=== PATIENT | female | born 1985 | race Caucasian/White ===

== ENCOUNTER 2017-12-26 07:37 | Outpatient (CLI) | payer OTHER ==
--- NOTE | 2017-12-29 13:59 | Ultrasound Report ---
COMPLETE OB ULTRASOUND ANATOMIC SCREEN: 12/26/2017 COMPARISON: None. INDICATION: Anatomy screen. TECHNIQUE: Sonographic evaluation of single intrauterine transabdominal exam. Real-time scanning was performed with claims representative static images obtained. LAST MENSTRUAL PERIOD: 08/04/2017 Clinical Age: 20 weeks 4 days US Age: 20 weeks 3 days EFW Hadlock: 345 g EFW% Hadlock: 31 % Heart Rate: 154 bpm EDC: 05/11/2018 US EDC: 05/12/2018 BPD Hadlock: 20 weeks 6 days; Mean mm 48.9 HC Hadlock: 20 weeks 1 day; Mean mm 176.1 AC Hadlock: 20 weeks 1 day; Mean mm 148.3 FL Hadlock: 20 weeks 4 days; Mean mm 33.6 Presentation: variable Placental Location: anterior Cervical Length: 4.1 cm Amniotic Fluid: 5.1 cm FINDINGS: The following structures are imaged and have a normal appearance : Choroid plexus, lateral ventricles, midline falx, cavum septum pellucidum, cisterna magna, cerebellum, nuchal fold, nasal bone, coronal face, nose, lips, open hands, cardiac situs, 4 chamber heart, left and right ventricular outflow tract, stomach and situs, heart, stomach, bladder, diaphragm, kidneys, gallbladder, cord insertion, spine, upper and lower extremities, leg and foot relationships. The cervix is long and closed, measuring 4.1 cm. Uterus, cervix, and adnexa appear grossly unremarkable. IMPRESSION: 1. SINGLE VIABLE INTRAUTERINE WITH SIZE CONCORDANT WITH DATES. 2. NO ANOMALIES. MTDD
== END 2017-12-26 07:38 | disposition home or self-care (01) ==
LOC: DI 07:37
PROVIDERS: ATTEND Registered Nurse
DX: Z34.82 Encounter for supervision of other normal pregnancy, second trimester (principal)
CPT/HCPCS: 76811

== ENCOUNTER 2018-02-19 08:55 | Outpatient (CLI) | payer OTHER ==
[2018-02-19 13:03] LABS: HGB - HEMOGLOBIN 11.2 g/dL (12.0-16.0); MEAN CORPUSCULAR HEMOGLOBIN 29.8 pg (27.0-31.0); MEAN CORPUSCULAR HGB CONC 33.6 g/dL (32.0-36.0); MEAN CORPUSCULAR VOLUME 88.5 fL (81.0-99.0); MEAN PLATELET VOLUME 9.1 fL (7.9-10.8); RED BLOOD COUNT 3.78 10^6/uL (4.20-5.40); RED CELL DISTRIBUTION WIDTH 12.7 % (12.0-15.0); WHITE BLOOD COUNT 12.7 x10^3/uL (4.8-10.8)
== END 2018-02-19 08:56 | disposition home or self-care (01) ==
LOC: LAB.N 08:55
PROVIDERS: ATTEND Nurse Practitioner Obstetrics & Gynecology
DX: Z36.89 Encounter for other specified antenatal screening (principal)
CPT/HCPCS: 36415; 82950; 86850

== ENCOUNTER 2018-04-14 14:16 | Outpatient (CLI) | payer OTHER | END 2018-04-14 14:17 | disposition home or self-care (01) | LOC: LAB.R 14:16 | PROVIDERS: ATTEND Registered Nurse | DX: Z34.83 Encounter for supervision of other normal pregnancy, third trimester (principal) | CPT/HCPCS: 87081; 87797 ==

== ENCOUNTER 2018-05-07 07:25 | Outpatient (CLI) | payer OTHER ==
[2018-05-07 07:46] VITALS: BP 123/88
== END 2018-05-07 08:35 | disposition home or self-care (01) ==
LOC: WFO 07:25 → FBP 07:27 → WFO 08:35
PROVIDERS: ATTEND Nurse Practitioner Obstetrics & Gynecology
DX: O36.8130 Decreased fetal movements, third trimester, not applicable or unspecified (principal); Z3A.39 39 weeks gestation of pregnancy
CPT/HCPCS: 99213

== ENCOUNTER 2018-05-14 08:02 | Inpatient (IN) | payer OTHER ==
[2018-05-14 09:13] LABS: RUPTURE OF MEMBRANES PLUS NEGATIVE (NEGATIVE)
[2018-05-14] MEDS ORDERED: ONDANSETRON 4 MG/2 ML VIAL IVP PRN (10:05)
[2018-05-14] MEDS ORDERED: SODIUM CHLORIDE FLUSH 0.9% 10 ML SYRINGE IVP PRN (10:05)
[2018-05-14] MEDS ORDERED: fentaNYL 100 MCG/2 ML VIAL IVP PRN (10:05)
--- NOTE | 2018-05-14 10:11 | HISTORY & PHYSICAL EXAMINATION ---
Admit History - Instructions Enterprise/Slash: -Left hand click circles element as positive or present. -Right hand click slashes element as negative or not present. - Visit Reason Visit Reason: Other (desires IOL @ 40w3d gestation) - : 1 Parity: 0 Premature: 0 Ectopic: 0 : 0 Care: positive: [facility] (transfer of care from [facility] @ 17 weeks' gestation x13 total visits; 42# weight gain) Risk/History: positive: None Complications This : positive: None Smoking Status: Former smoker - Mother's Labs Mother's Blood Type: positive: B Mother's RH: positive: Negative GBS: positive: Group B Step Negative Rubella Status: positive: Immune Meds/Allgy - Allergies Allergies/Adverse Reactions: Allergies Allergy/AdvReac Type Severity Reaction Status Date / Time No Known Drug Allergies Allergy Verified 05/14/18 09:13 Review of Systems - Constitutional Constitutional: denies: Fatigue, Fever - Cardiovascular Cariovascular: denies: Palpitations, Chest pain, Edema - Respiratory Respiratory: denies: Cough, Wheezing, SOB at rest, SOB with exertion - Gastrointestinal Gastrointestinal: denies: Abdominal pain, Abdominal distention, Constipation, Diarrhea, Change in bowel habits, Nausea, Vomiting - Genitourinary Genitourinary: reports: Frequency, Urgency. denies: Dysuria - Musculoskeletal Musculoskeletal: denies: Muscle pain, Back pain, Muscle aches - Integumentary Integumentary: denies: Rash, Pruritis, Lesions - Neurological Neurological: denies: General weakness, Headache, Dizziness, Numbness - Psychiatric Psychiatric: denies: Depression, Anxiety - All Other Systems All Other Systems: reports: Reviewed and negative, Other (+FM; thought she may have been leaking fluid, small trickle earlier today, no continuous leakage, some bloody show) Physical - Abdominal Exam Vital Signs: Temp Pulse Resp BP Pulse Ox 36.9 C 91 16 122/88 H 97 05/14/18 08:35 05/14/18 08:35 05/14/18 08:35 05/14/18 08:35 05/14/18 08:35 Contraction Frequency (min/apart): 5-7 Contraction Intensity: positive: Mild to moderate Uterine Resting Tone: positive: Soft - Monitoring Heart Rate Baseline: 140 Strip Review: positive: Category I - Presentation Presentation: positive: Vertex - Vaginal Exam Membranes: positive: Membranes intact Dilation (in cm): 3 Effacement (%): 90 Station: positive: 0 Cervical Position: positive: Posterior (medium consistency) - Speculum Exam Speculum Exam Performed: positive: No Findings: positive: Other (ROM + negative). negative: Gross leak - Other Notes Labor Progress Note/Additional Text: Marleni Dillard is a 32 y/o @ 40w3d by first trimester US whose has been entirely uncomplicated. She is B negative & received Rhogam @ 28 weeks' gestation per protocol. She screened negative for GBS & her labwork was all WNL. She is well-supported by her & her MIL & her mother, who are all present with her today. She is hoping for an unmedicated delivery & plans to breastfeed. She thought she may have experienced ROM this am, but her evaluation was negative. She desires IOL & requests misoprostol administration , which we reviewed @ length. Full PARQ w/ review of risks/benefits/ alternatives/SE profile/protocol for administration, informed consent obtained. PMH: Unremarkable PSH: None GYNHx: hx NILM pap w/o hx of abnormal, last 10/2016, denies hx of STIs OBHx: Primiparous SocialHx: to [place], denies DV; works f/t as riding teacher in [place]; denies ETOH/tobacco/drugs; denies hx of anxiety/depression, financially secure FamHx: Non-contributory PE: GEN: AAOx3, NAD [place] gravid female HEENT: Grossly normocephalic, atraumatic, w/o corrective lenses RESP: Lungs b/l cta t/o CARDIAC: RRR nls1s2, no murmur GI: Abd gravid, NT, fetus longitudinal; presentation cephalic; EFW 8# : No lesions, SVE: 3/90/0, posterior, medium consistency, IBOW OB: EFM Bl 140bpm, +accels, no decels, mod gladys; toco: UCs q6-7 min x60 seconds , palp mod MS: FROM t/o, no deformity, no erythema/edema SKIN: warm, well-perfused, c/d/i, no lesion NEURO: no focal deficit PSYCH: normal mood & affect, pleasantly conversant Plan for Labor - Plan For Labor I expect patient to be DC'd or transferred within 96 hours.: Yes Plan for Labor: 1. Admit 2. IV insert & admission labs 3. Misoprostol 50mcg BC q 4 hours 4. Reassess cervical status w/ clinical indication 5. Reviewed ROM w/ pt, who declines AROM @ this point, may elect in the future 6. Reviewed anticipatory guidance for labor induction process & possible outcomes 7. Reviewed pain management techniques, analgesia/anesthesia PRN per pt request 8. Reviewed plan of care w/ pt, partner, MIL, pt's mother & RN @ bedside; all in agreement, without questions/concerns.
[2018-05-14 10:26] LABS: BASOPHILS % (AUTO) 0.3 %; EOSINOPHILS % (AUTO) 0.4 %; HGB - HEMOGLOBIN 11.6 g/dL (12.0-16.0); LYMPHOCYTES # (AUTO) 1.7 10^3/uL (1.5-3.5); MEAN CORPUSCULAR HEMOGLOBIN 28.9 pg (27.0-31.0); MEAN CORPUSCULAR HGB CONC 33.9 g/dL (32.0-36.0); MEAN CORPUSCULAR VOLUME 85.1 fL (81.0-99.0); MEAN PLATELET VOLUME 11.1 fL (7.9-10.8); MONOCYTES # (AUTO) 0.7 10^3/uL (0.0-1.0); MONOCYTES % (AUTO) 5.8 %; NEUTROPHILS # (AUTO) 10.4 10^3/uL (1.5-6.6); NEUTROPHILS % (AUTO) 80.5 %; PLT - PLATELET COUNT 170 10^3/uL (130-450); RED BLOOD COUNT 4.03 10^6/uL (4.20-5.40); RED CELL DISTRIBUTION WIDTH 14.4 % (12.0-15.0)
[2018-05-14] MEDS: miSOPROStol 100 MCG TABLET BC SCH ×2 (10:53→23:55)
[2018-05-14] MEDS ORDERED: SODIUM CHLORIDE FLUSH 0.9% 10 ML SYRINGE IVP SCH (17:00)
[2018-05-14] MEDS ORDERED: OXYTOCIN/SODIUM CHLORIDE 500 ML IV ONE (19:09)
[2018-05-15] MEDS: LACTATED RINGERS 1,000 ML IV SCH ×5 (02:25→20:22)
[2018-05-15] MEDS ORDERED: OXYTOCIN/SODIUM CHLORIDE 500 ML IV SCH (05:00)
[2018-05-15] MEDS ORDERED: fent/BUPIV 2 MCG/0.125% 250 ML EP ONE (06:36)
--- NOTE | 2018-05-15 07:56 | PROVIDER PROGRESS NOTE ---
Labor Progress Note - Uterine Monitoring Uterine Monitoring Mode: positive: External toco Contraction Frequency (min/apart): 4-5 Contraction Intensity: positive: Mild to moderate Uterine Resting Tone: positive: Soft - Monitoring Monitor Mode: positive: External ultrasound Heart Rate Baseline: 150 Heart Rate Variability: positive: Moderate (6-25 bmp) Accelerations: positive: Present, 15x15 Decelerations: positive: None Strip Review: positive: Category I - Vaginal Exam Dilation (in cm): 5 per RN Effacement (%): 90 Station: -1 Cervical Position: Posterior - Labor Progress Note Labor Progress Note/Additional Text: S: Marleni is doing well. She has been using the jacuzzi & coping with her contraction activity, which has become more sporadic over time s/p initial misoprostol administration w/ initial increased contraction activity. Her family is present @ the bedside & is supportive. O: AAOx3, NAD WA female, VSS EFM: BL 150bpm, +accels, no decels, mod gladys TOCO: UCs q4-5 min x60 sec, palp mod SVE per RN: /-1 (previously reported by [facility] RN to be 8cm), IBOW A: 32 y/o @ 40w3d, IOL per pt request, s/p single dose of misoprostol w/ slight cervical change, contractions now less frequent, inconsistent GBS neg, IBOW FHTs cat I Adequate pain control w/o analgesia/anesthesia P: 1. repeat misoprostol x1 more dose, 50mcg buccally 2. Reassess cervical status w/ clinical indication 3. Reviewed pain management modalities, analgesia/anesthesia PRN 4. AROM/Pit if no cervical change @ next SVE
--- NOTE | 2018-05-15 08:00 | PROVIDER PROGRESS NOTE ---
Labor Progress Note - Uterine Monitoring Uterine Monitoring Mode: positive: External toco Contraction Frequency (min/apart): 1-4 Contraction Intensity: positive: Moderate Uterine Resting Tone: positive: Soft - Monitoring Monitor Mode: positive: External ultrasound Heart Rate Baseline: 150 Heart Rate Variability: positive: Moderate (6-25 bmp) Accelerations: positive: Present, 15x15 Decelerations: positive: None Strip Review: positive: Category I - Vaginal Exam Dilation (in cm): 7 Effacement (%): 90 Station: 0 (per RN) - Labor Progress Note Labor Progress Note/Additional Text: S: Marleni is feeling tired, utilizing self-administered nitrous oxide w/ some relief. Family @ bedside, supportive O: AAOx3, NAD [place] female VSS EFM: BL 155bpm, +accels, no decels, mod gladys TOCO: UCs q1-4 min, palpably moderate A: 32 y/o @ 40w4d, elective IOL SROM for minimal fluid @ 0240, GBS negative, afebrile FHTs cat I Coping well w/ use of nitrous oxide Slow cervical change s/p two dose of misoprostol P: 1. Begin Pitocin infusion & titrate per protocol to adequate contraction pattern by tocometry 2. Analgesia/anesthesia PRN per pt request 3. Reassess cervical status x4 hours, earlier PRN problem
--- NOTE | 2018-05-15 08:15 | PROVIDER PROGRESS NOTE ---
Labor Progress Note - Uterine Monitoring Uterine Monitoring Mode: positive: External toco, IUPC Contraction Frequency (min/apart): q2 min Contraction Intensity: positive: Mild (BL 25mmHg, peak 75mmHg; MVU presently 130 ) - Monitoring Monitor Mode: positive: External ultrasound Heart Rate Baseline: 170 Heart Rate Variability: positive: Moderate (6-25 bmp) Accelerations: positive: Absent Decelerations: positive: Late, Recurrent (>50% x20 min) Strip Review: positive: Category II - Vaginal Exam Dilation (in cm): 8-9 Effacement (%): 100 Station: 0 (LOT positioning) Cervical Position: Anterior - Labor Progress Note Labor Progress Note/Additional Text: S: Marleni is comfortable w/ her epidural in place. She is exhausted & looking forward to napping. Her family is present @ the bedside & is supportive O: AAOx3, NAD [place] female VSS EFM BL 170bpm, no accels, recurrent late decelerations to sheba in 130s w/ spontaneous return to baseline <60 seconds, moderate variability IUPC placed to ensure adequacy of contraction activity (Pitocin infusion only titrated to 2mU/min, then d/c'ed for late decelerations); BL 25mmHg, peak 60mmHg , MVU presently 130 SVE: 9/100/0, desceds to +1 w/ contraction, positioning LOT, AROM forebag for port wine fluid A: 32 y/o @ 40w4d, elective IOL for prodromal contractions/discomfort GBS negative, SROM @ 0240, for a total ruptured duration of 4.5 hours, afebrile & GBS negative Inadequate contraction pattern per IUPC malposition Adequate pain control w/ epidural anesthesia Slow but progressive cervical change despite inadequate labor FHTs cat II w/o evidence of hypoxemia P: 1. Resume Pitocin infusion & titrate per protocol to achieve adequate contraction pattern by IUPC 2. Reviewed maternal positioning to facilitate rotation & descent 3. Place hernandez catheter to optimize pelvic proportions 4. Reviewed clinical scenario & FHTs w/ pt & family @ length, reviewed implications & possibility of need for LTCS if FHTs do not improve, as delivery is not imminent 5. Dr. Rosalina MD, back-up [employer] WORK[employer] to bedside to review strip & clinical scenario with patient & family; ongoing careful monitoring of FHTs
[2018-05-15] MEDS ORDERED: ceFAZolin 2 GM in SODIUM CHLORIDE 0.9% MINIBAG 100 ML IV STA (08:40)
--- NOTE | 2018-05-15 08:42 | PROVIDER PROGRESS NOTE ---
Labor Progress Note - Uterine Monitoring Uterine Monitoring Mode: positive: IUPC Contraction Frequency (min/apart): 2-3 Contraction Intensity: positive: Moderate Other Uterine Monitoring: baseline 20mmHg, peak 70mmHg, MVU presently 135 - Monitoring Monitor Mode: positive: External ultrasound Heart Rate Baseline: 175 Heart Rate Variability: positive: Moderate (6-25 bmp) Accelerations: positive: Absent Decelerations: positive: Late, Recurrent (>50% x20 min) (to sheba in 130s w/ spontaneous return to baseline, persistent, repetitive w/o response to intrauterine resuscitative measures) Strip Review: positive: Category II - Vaginal Exam Dilation (in cm): 9 Effacement (%): 100 Station: 0 - Labor Progress Note Labor Progress Note/Additional Text: Reviewed w/ pt & family no improvement in FHTs & need for intervention as a result. Remote from delivery, FHTs persistently concerning. Dr. Romano to bedside to consent pt for primary LTCS for NRFHTs. Reviewed clinical scenario @ length with patient & family. Peds notified to be present @ delivery, OR notified, requested anesthesia come to room to bolus epidural for surgery.
[2018-05-15] MEDS ORDERED: CITRIC ACID/SODIUM CITRATE 15 ML UDC PO ONE ×2 (08:43→08:51)
[2018-05-15] MEDS ORDERED: LACTATED RINGERS 1,000 ML IV ONE ×3 (08:51→20:20)
[2018-05-15] MEDS ORDERED: ceFAZolin 3 GM in SODIUM CHLORIDE 0.9% 100ML 100 ML IV ONE (08:51)
[2018-05-15] MEDS ORDERED: SODIUM CHLORIDE FLUSH 0.9% 10 ML SYRINGE IVP PRN (08:52)
[2018-05-15] MEDS ORDERED: SODIUM CHLORIDE FLUSH 0.9% 10 ML SYRINGE IVP SCH (09:00)
[2018-05-15] MEDS ORDERED: ceFAZolin 2 GM/50 ML 2 GM/50 ML BAG IV ONE (09:00)
[2018-05-15] MEDS ORDERED: OXYTOCIN 10 UNIT/ML VIAL IV ONE (09:41)
[2018-05-15] MEDS ORDERED: fentaNYL 100 MCG/2 ML VIAL IVP ONE (09:41)
[2018-05-15] MEDS ORDERED: ceFAZolin 2 GM/50 ML BAG IV ONE (09:41)
[2018-05-15] MEDS ORDERED: ONDANSETRON 4 MG/2 ML VIAL IVP ONE (09:41)
[2018-05-15] MEDS ORDERED: LIDOCAINE-MPF 2% 5 ML VIAL IM ONE (09:41)
[2018-05-15] MEDS ORDERED: diphenhydrAMINE 25 MG CAPSULE PO PRN (09:43)
[2018-05-15] MEDS ORDERED: WITCH HAZEL/GLYCERIN 1 EACH MED..PAD TOP PRN (09:43)
[2018-05-15] MEDS ORDERED: ZOLPIDEM 5 MG TABLET PO PRN (09:43)
[2018-05-15] MEDS ORDERED: HYDROCORTISONE/PRAMOXINE 10 GM PR PRN (09:43)
--- NOTE | 2018-05-15 09:55 | OPERATIVE REPORT ---
Operative Report - General Admit Date: 05/15/18 Planned Procedure: Primary lower segment transverse section (urgent) Pre-Op Diagnosis: Repetitive late decelerations, evidence of compromise, uterine pain w Procedure Performed: Primary lower segment transverse section Post Op Diagnosis: Successful delivery of a living female ; await patho - Procedure Note Primary Surgeon: Christophe Romano MD, FACOG, FICS Secondary Surgeon: Niranjan Strong; ANP; CNM Anesthesia Provider: Trip Lima MD Anesthesia Technique: Epidural Pathology: Placenta sent to pathology for evidence of abruption and possible mild chorion amnionitis IV Fluids (mL): 800 Estimated Blood Loss (mL): 400 Urine Output (mL): 120 Drain/Tube Type: Other (Hong catheter with clear urine) Complications: none - Other Other Information/Narrative: time equals Living female infant We 7 pounds 10.4 oz Apgars 8/9 Cord gases sent Arterial pH 7.22, base excess -4.4 Venous pH 7.26 base excess -4.6 Dressing includes wound VAC
[2018-05-15] MEDS ORDERED: KETOROLAC 30 MG/ML VIAL IVP ONE (10:06)
[2018-05-15] MEDS ORDERED: HYDROmorphone 1 MG/ML CARPUJECT IVP ONE (10:11)
[2018-05-15] MEDS ORDERED: ACETAMINOPHEN 1,000 MG/100 ML 100 ML IV ONE (10:13)
[2018-05-15] MEDS: miSOPROStol 100 MCG TABLET BC SCH ×2 (13:19→17:29)
[2018-05-15] MEDS: ACETAMINOPHEN 325 MG TABLET PO PRN ×2 (17:24→23:33)
[2018-05-15] MEDS: IBUPROFEN 600 MG TABLET PO SCH ×3 (17:25→23:33)
[2018-05-15] MEDS: oxyCODONE 5 MG TABLET PO PRN ×2 (17:25→22:45)
--- NOTE | 2018-05-15 20:22 | OPERATIVE REPORT ---
DATE OF SERVICE: 05/15/2018 Physician: Christophe Romano MD PREOPERATIVE DIAGNOSIS: Repetitive late decelerations, evidence of compromise; suspected abruption with uterine pain and blood-stained amniotic fluid. POSTOPERATIVE DIAGNOSES 1. Successful delivery of a living female ; await pathology. 2. Repetitive late decelerations, evidence of compromise; suspected abruption with uterine pain and blood-stained amniotic fluid. PROCEDURE: Primary lower segment transverse section with a Pfannenstiel skin incision. SURGEON: Christophe Romano MD, FACOG, FICS SLIP COVER ESTIMATOR: Edison Strong, advanced nurse practitioner, certified nurse media/instructional designer ANESTHESIA: Trip Lima MD ANESTHESIA TYPE: Epidural. PATHOLOGY: Placenta sent to pathology for evidence of abruption and possible mild chorioamnionitis. IV FLUIDS: 800 ESTIMATED BLOOD LOSS: 400 URINE OUTPUT: 120, clear. DRAINS: Hong with clear urine present. COMPLICATIONS: None. FINDINGS At 0906 hours, a living female was born weighing 7 pounds 10.4 ounces and scoring Apgars of 8/9. Arterial pH 7.22 with a base excess of -4.4. Venous pH 7.26 with a base excess of -4.6. had no obvious trauma or congenital anomalies noted. did well to stimulation and resuscitation. Placenta was extracted intact. The placenta itself was somewhat adherent and mostly anterior. Clots were found, Await pathology report. Amniotic fluid had a somewhat pungent smell. Cord was a 3-vessel, and there was no significant cord entanglement. Tubes and ovaries appeared completely normal. There was no myometrial pathology or septum noted. INDICATIONS: At 8:15 a.m., Edison Strong CNM, informed me of a series of late decelerations that occurred on the patient's tracing. baseline was elevated, and there was a series of 4 recurrent late decelerations with moderate variability maintained. The late decelerations spontaneously improved , and we continued to watch. The patient noted uterine pain and previously had blood-stained amniotic fluid on rupture. I discussed the situation with the patient and family and informed her that we would maintain close watch, since there were concerns about well-being and reserve. After a brief reprieve , the late decelerations recurred, and we prepared immediately for section. OR was informed. The patient was given Bicitra and IV antibiotics of 3 g of Ancef ordered. Computer Networking Instructor Darío Miller redosed her epidural with lidocaine, and preparations were made for transport to the OR. TECHNIQUE The patient was placed on the OR table in the supine position with customary left-sided abdominal roll. Heart tones were noted in the 120s. The patient was prepped and draped in the customary sterile fashion. Timeout procedure was done per protocol. Anesthesia was confirmed through level T10. Incision was begun at 0903 hours. Abdominal wall was uneventfully opened with a Pfannenstiel incision. Position of the fetus was assessed, including placenta. A lower segment transverse hysterotomy incision was executed just below the placenta. The amniotic cavity was entered, and there was somewhat cloudy fluid but no derik bleeding. Incision was extended with gentle finger traction. Locate Technician secured the vertex with his right hand and guided the head through the hysterotomy and laparotomy wound. Shoulders were delivered without difficulty. Cord was doubly clamped, transected. Cord gas sample was sent. Infant was handed to the waiting pediatrics team. The uterus was exteriorized. Placenta was somewhat adherent and removed with gentle massage. It was sent to pathology. Hysterotomy was closed in 2 layers, first with an interlocking stitch of 0 Vicryl, after which, an imbricating stitch of #1 Vicryl was done in a cardinal fashion. We chose not to close the bladder flap. The abdominal cavity was lavaged with warm normal saline and the uterus placed back within the abdomen. We inspected all operative sites to ensure hemostasis. Peritoneal closure was done with a running stitch of 2-0 chromic. Rectus muscle was tacked together with interrupted stitches of #1 Vicryl. Fascia was closed with a running stitch of #0 Vicryl. Subcutaneous space was closed with interrupted stitches of 2-0 chromic. Skin was closed with a running subcuticular stitch of 4-0 Monocryl. The wound was dressed with a wound VAC. At the termination of the case, all sponge, needle, and instrument counts were confirmed as correct. The patient was uneventfully aroused and taken to the recovery room in good condition. TD: 05/15/2018 10:55 [facility]
[2018-05-15] MEDS: DOCUSATE SODIUM 100 MG CAPSULE PO SCH (22:43)
[2018-05-16] MEDS: oxyCODONE 5 MG TABLET PO PRN ×6 (02:16→21:34)
[2018-05-16] MEDS: ACETAMINOPHEN 325 MG TABLET PO PRN ×3 (05:29→18:08)
[2018-05-16] MEDS: IBUPROFEN 600 MG TABLET PO SCH ×3 (05:29→18:08)
[2018-05-16 06:28] LABS: BASOPHILS % (AUTO) 0.3 %; EOSINOPHILS % (AUTO) 0.2 %; HGB - HEMOGLOBIN 9.6 g/dL (12.0-16.0); LYMPHOCYTES # (AUTO) 1.2 10^3/uL (1.5-3.5); LYMPHOCYTES % (AUTO) 7.9 %; MEAN CORPUSCULAR HEMOGLOBIN 29.1 pg (27.0-31.0); MEAN CORPUSCULAR HGB CONC 33.3 g/dL (32.0-36.0); MEAN CORPUSCULAR VOLUME 87.4 fL (81.0-99.0); MEAN PLATELET VOLUME 10.3 fL (7.9-10.8); MONOCYTES # (AUTO) 0.8 10^3/uL (0.0-1.0); MONOCYTES % (AUTO) 5.3 %; NEUTROPHILS # (AUTO) 13.2 10^3/uL (1.5-6.6); NEUTROPHILS % (AUTO) 86.3 %; PLT - PLATELET COUNT 137 10^3/uL (130-450); RED BLOOD COUNT 3.31 10^6/uL (4.20-5.40); RED CELL DISTRIBUTION WIDTH 14.7 % (12.0-15.0); WHITE BLOOD COUNT 15.3 x10^3/uL (4.8-10.8)
[2018-05-16] MEDS: LACTULOSE 10 GM /15 ML UDC PO SCH (09:03)
[2018-05-16] MEDS: DOCUSATE SODIUM 100 MG CAPSULE PO SCH ×2 (09:03→21:35)
--- NOTE | 2018-05-16 10:31 | PROVIDER PROGRESS NOTE ---
Subjective - Prog Note Date Prog Note Date: 05/16/18 Prog Note Time: 10:30 - Subjective Pt reports feeling: Improved Subjective: Marleni is doing well. She is ambulating & voiding w/o difficulty. She is passing flatus & tolerating po intake. She reports minimal lochia rubra. She reports that her pain is well-controlled w/ her presently ordered oxycodone. She is not planning to return to work. Evan will have 12 days off to assist her at home & [place] She reports additional excellent social support. She articulates full understanding of the events leading up to her c/s delivery & has no concerns or regrets. She is well w/ excellent latch & minimal discomfort. Objective - Vital Signs/Intake & Output Vital Signs: Vital Signs x48h Temp Pulse Resp BP Pulse Ox 05/16/18 08:35 37.1 C 103 H 18 116/76 98 05/16/18 05:31 36.8 C 88 16 122/70 99 Intake & Output: Intake & Output 05/13/18 05/14/18 05/15/18 05/16/18 23:59 23:59 23:59 23:59 Intake Total 500 1918.333 400 Output Total 271 424 5482 Balance 100 1143.333 -1750 - Objective General Appearance: positive: No acute distress, Alert Eyes Bilateral: positive: Normal inspection, PERRL, EOMI Respiratory: positive: Chest non-tender, No respiratory distress, Breath sounds nml Cardiovascular: positive: Regular rate & rhythm, No murmur Abdomen: positive: No distention, Tenderness, Other (FF U-1; Prevena wound vac in place, c/d/i w/o circumferential exudate or erythema) Skin: positive: Color nml, No rash, Warm, Dry Extremities: positive: Non-tender, Full ROM, Nml appearance, No pedal edema. negative: Calf tenderness, Krystian's sign/cords Neurologic/Psychiatric: positive: Oriented x3, CN's nml (2-12), Motor nml, Sensation nml, Mood/affect nml Comments/Other: Breasts b/l s, nt; nipples b/l intact & everted; colostrum readily expressible - Lab Results Fish Bones: 05/16/18 06:18 Other Labs: Lab Results x24hrs 05/16/18 05/16/18 Range/Units 06:18 06:18 WBC 15.3 H (4.8-10.8) x10^3/uL RBC 3.31 L (4.20-5.40) 10^6/uL Hgb 9.6 L (12.0-16.0) g/dL Hct 28.9 L (37.0-47.0) % MCV 87.4 (81.0-99.0) fL MCH 29.1 (27.0-31.0) pg MCHC 33.3 (32.0-36.0) g/dL RDW 14.7 (12.0-15.0) % Plt Count 137 (130-450) 10^3/uL MPV 10.3 (7.9-10.8) fL Neut # (Auto) 13.2 H (1.5-6.6) 10^3/uL Lymph # (Auto) 1.2 L (1.5-3.5) 10^3/uL [place] # (Auto) 0.8 (0.0-1.0) 10^3/uL Eos # (Auto) 0.0 (0.0-0.7) 10^3/uL Baso # (Auto) 0.0 (0.0-0.1) 10^3/uL Absolute Nucleated RBC 0.01 x10^3/uL Nucleated RBC % 0.0 /100WBC Blood Type B NEGATIVE Weak D (Du) WEAK-D NEGATIVE Maternal Bleed NEGATIVE (NEGATIVE) ABX Reporting Has patient been on IV antibiotics over the past 48 hours?: Yes Assessment/Plan - Problem List (1) delivery delivered Impression: 32 y/o s/p primary LTCS for NRFHTs, POD #1 Normal uterine involution Minimal lochia Mild anemia secondary to acute blood loss, asymptomatic & hemodynamically stable Adequate pain control w/ current anlagesic regimen well P: 1. Continue routine pp care 2. Begin po iron supplementation BID 3. support offered & to continue in ongoing fashion 4. Extensive review of indication for LTCS & implications for her recovery as well as for future childbearing, all questions answered 5. Anticipatory guidance re: next 6 weeks 6. Anticipate d/c home POD#2
[2018-05-16] MEDS ORDERED: RHO(D) IMMUNE GLOBULIN 300 MCG SYRINGE IM ONE (11:05)
[2018-05-17] MEDS: ACETAMINOPHEN 325 MG TABLET PO PRN ×4 (00:18→19:53)
[2018-05-17] MEDS: IBUPROFEN 600 MG TABLET PO SCH ×4 (00:18→19:54)
[2018-05-17] MEDS: oxyCODONE 5 MG TABLET PO PRN ×6 (01:06→21:57)
[2018-05-17] MEDS ORDERED: NITROGLYCERIN SL 0.4 MG TABLET SL ONE (03:11)
[2018-05-17] MEDS: LACTULOSE 10 GM /15 ML UDC PO SCH (09:29)
[2018-05-17] MEDS: FERROUS SULFATE 325 MG TABLET PO SCH (09:30)
[2018-05-17] MEDS: DOCUSATE SODIUM 100 MG CAPSULE PO SCH ×2 (09:30→20:54)
--- NOTE | 2018-05-17 15:04 | PROVIDER PROGRESS NOTE ---
Subjective - Prog Note Date Prog Note Date: 05/17/18 Prog Note Time: 15:00 - Subjective Pt reports feeling: Improved Subjective: Marleni is doing well. Her pain is better managed w/ increased dosage of oxycodone. She has not had a BM & feels that her gas & her stool are causing her more discomfort. She is taking stool softeners & has had some lactulose but has not had much relief. She is ambulating & voiding w/o difficulty. She is tolerating a regular diet. She is well w/ excellent latch & no discomfort. She reports that her breasts are filling & that she is seeing milk in her 's mouth now. She is not ready to leave the hospital & would like to stay another night to ensure she has had a BM prior to d/c. Objective - Vital Signs/Intake & Output Vital Signs: Vital Signs x48h Temp Pulse Resp BP Pulse Ox 05/17/18 08:04 36.8 C 102 H 18 134/68 H 99 Intake & Output: Intake & Output 05/14/18 05/15/18 05/16/18 05/17/18 23:59 23:59 23:59 23:59 Intake Total 500 1918.333 400 Output Total 616 032 7157 Balance 100 1143.333 -2050 - Objective General Appearance: positive: No acute distress, Alert Respiratory: positive: Chest non-tender, No respiratory distress, Breath sounds nml Cardiovascular: positive: Regular rate & rhythm, No murmur Abdomen: positive: Nml bowel sounds, Tenderness, Other (Prevena wound vac in place & functional, tegaderm dsg c/d/i, no circumferential erythema/exudate) Skin: positive: Color nml, No rash, Warm, Dry Extremities: positive: Non-tender, Full ROM, Nml appearance, No pedal edema. negative: Calf tenderness, Krystian's sign/cords Neurologic/Psychiatric: positive: Oriented x3, CN's nml (2-12), Motor nml, Sensation nml, Mood/affect nml - Lab Results Fish Bones: 05/16/18 06:18 Assessment/Plan - Problem List (1) delivery delivered Impression: 32 y/o s/p primary LTCS 05/15/2018 for NRFHTs, POD #2 Normal uterine involution Minimal lochia rubra Adequate pain control w/ opioid analgesia Constipation & gas w/ discomfort well P: 1. simethicone QID, milk of magnesia, reviewed ambulation, hydration 2. reviewed se profile of opioids & discouraged prophylactic use, use lowest dose w/ least frequency possible, augment w/ non-opioid analgesia 3. support provided & to continue in ongoing fashion 4. continue routine pp care 5. anticipate d/c home POD#3
[2018-05-17] MEDS ORDERED: MAGNESIUM HYDROXIDE 2,400 MG/30 ML UDC PO SCH (15:40)
[2018-05-17] MEDS: SIMETHICONE CHEW 80 MG TABLET PO SCH ×2 (17:20→18:53)
[2018-05-18] MEDS: ACETAMINOPHEN 325 MG TABLET PO PRN (02:42)
[2018-05-18] MEDS: IBUPROFEN 600 MG TABLET PO SCH ×2 (02:43→08:56)
[2018-05-18] MEDS: oxyCODONE 5 MG TABLET PO PRN (02:54)
[2018-05-18] MEDS: FERROUS SULFATE 325 MG TABLET PO SCH (08:57)
[2018-05-18] MEDS: LACTULOSE 10 GM /15 ML UDC PO SCH (08:57)
--- NOTE | 2018-05-18 12:47 | PROVIDER PROGRESS NOTE ---
Subjective - General Admit Date: 05/15/18 Procedure Date: 05/15/18 Post Op Days: 3 Procedure Performed: Primary Low Transverse C/S - Review of Systems Wound/Incisions: positive: Dressing dry and intact (Wound Vac) General: positive: No symptoms, Fever HEENT: positive: No symptoms Cardiovascular: positive: No symptoms Gastrointestinal: positive: No symptoms, Flatus All Other Systems: positive: Reviewed and negative, Other (+FM; thought she may have been leaking fluid, small trickle earlier today, no continuous leakage, some bloody show) Objective - Patient Data Reviewed Vital Signs: Yes Vital Signs: Vital Signs x48h Temp Pulse Resp BP Pulse Ox 05/18/18 07:45 37.1 C 87 16 129/69 100 Intake & Output: Intake and Output Totals x24h 05/16/18 05/17/18 05/18/18 23:59 23:59 23:59 Intake Total 400 Output Total 2450 Balance -2049 - Lab Results Lab Results: 05/16/18 06:18 Other Lab Results: Lab Results x24hrs 05/15/18 Range/Units 09:15 Cord ABG pH Cancelled Cord ABG pCO2 Cancelled Cord ABG pO2 Cancelled Cord ABG HCO3 Cancelled Cord ABG Total CO2 Cancelled Cord ABG Base Excess Cancelled Cord ABG O2 Sat Cancelled Cord VBG pH Cancelled Cord VBG pCO2 Cancelled Cord VBG pO2 Cancelled Cord VBG HCO3 Cancelled Cord VBG Total CO2 Cancelled Cord VBG Base Excess Cancelled Cord VBG O2 Sat Cancelled - Current Medications Current Medications: Current Medications Generic Name Dose Route Start Last Admin Trade Name Leonelq PRN Reason Stop Dose Admin Acetaminophen 650 mg 05/14/18 10:05 05/18/18 02:42 Tylenol PO 650 mg Q6H PRN Administration Pain or Fever Docusate Sodium 100 mg 05/15/18 21:00 05/17/18 20:54 Colace 100mg Capsule PO 100 mg BID JOLANTA Administration Fentanyl 50 mcg 05/14/18 10:05 05/15/18 20:02 Fentanyl IVP 50 mcg Q1H PRN Administration PAIN Ferrous Sulfate 325 mg 05/17/18 08:00 05/18/18 08:57 Feosol PO 325 mg DAILYWM JOLANTA Administration Oxytocin/Sodium Chloride 500 mls @ 1 mls/hr 05/15/18 05:00 08/03/18 08:05 Pitocin/Sodium Chloride IV 2 milliunit/min TITR JOLANTA 2 mls/hr Protocol Administration 1 MILLIUNIT/MIN Lactated Ringer's 1,000 mls @ 100 mls/hr 05/15/18 09:00 05/15/18 20:22 Lr IV 100 mls/hr .Q10H JOLANTA Administration Ibuprofen 600 mg 05/15/18 10:00 05/18/18 08:56 Motrin PO 600 mg Q6H JOLANTA Administration Lactulose 10 gm 05/16/18 09:00 05/18/18 08:57 Enulose PO 10 gm DAILY JOLANTA Administration Misoprostol 50 mcg 05/14/18 11:00 05/15/18 17:29 Cytotec BC Not Given Q4H JOLANTA Oxycodone HCl 10 mg 05/16/18 12:24 05/18/18 02:54 Roxicodone PO 10 mg Q4HR PRN Administration PAIN Simethicone 80 mg 05/17/18 16:00 05/17/18 18:53 Mylicon PO Not Given 0900,1300,1800,2100 JOLANTA Sodium Chloride 10 ml 05/15/18 09:00 05/15/18 17:29 Normal Saline Flush 0.9% IVP Not Given 0100,0900,1700 [facility] - Physical Exam Wound/Incisions: positive: Dressing dry and intact General Appearance: positive: No acute distress, Alert Eyes Bilateral: positive: Normal inspection Respiratory: positive: Chest non-tender, No respiratory distress, Breath sounds nml Cardiovascular: positive: Regular rate & rhythm, No murmur, No gallop Abdomen: positive: Non-tender, No organomegaly, Nml bowel sounds, No distention , Mass (U-3) Back: negative: CVA tenderness (R), CVA tenderness (L) Skin: positive: Color nml, No rash, Warm, Dry Neurologic/Psychiatric: positive: Oriented x3, CN's nml (2-12)
[2018-05-18 13:33] VITALS: BP 128/69
--- NOTE | 2018-05-20 18:10 | DISCHARGE SUMMARY ---
Physician: Christophe Guo MD DATE OF ADMISSION: 05/15/2018 DATE OF DISCHARGE: 05/18/2018 ADMITTING DIAGNOSIS: A 32-year-old G1, P0 female, 40 weeks 3 days, here for induction. DISCHARGE DIAGNOSES 1. A 32-year-old G1, P0 female, 40 weeks 3 days, here for induction. 2. Repetitive lates during labor. PROCEDURES 1. Misoprostol 50 mcg q.4 h. 2. Nitrous oxide. 3. Pitocin augmentation. 4. Epidural. 5. Primary low transverse section. PRESENTING HISTORY: Patient is a 32-year-old G1, P0 female, 40 weeks 3 days by first trimester ultrasound whose course was uncomplicated. Of note was the fact that she was B negative, and she received RhoGAM at 28 weeks per protocol. She had a GBS which was negative. She had good support with family. She presented on 05/14/2018 for induction of labor. She initially had cervical ripening with buccal misoprostol 50 mcg q.4 h. She showed progress and reached 9 cm. However, during this timeframe, she needed Pitocin augmentation. She was initially treated with nitrous oxide for pain control. She eventually had a primary low transverse section for repetitive lates during labor. At time of delivery, a live female infant with Apgars 8 and 9 was delivered. Cord gases arterial 7.22 and 7.26. Her postoperative course was unremarkable. Her diet was advanced. Her pain control was continued with oral pain medication. She was discharged to home on 05/18/2018. MEDICATIONS Discharge medications were those of: 1. Oxycodone. 2. Simethicone. 3. Iron. We discussed , as well as its limitations for prevention of , as well as concerns about possible developing mastitis. She is instructed to follow up in the clinic in 1 week for removal of her wound VAC. TD: 05/20/2018 11:41 GUREO
== END 2018-05-18 13:30 | disposition home or self-care (01) | DRG 765 ==
LOC: WFO 08:02 → FBP 08:05 → WFO 10:04 → FBP 10:05 → OBSVTOIN 05-15 07:51
PROVIDERS: ADMIT Registered Nurse; ATTEND Obstetrics & Gynecology
PROC: 10907ZC Drainage of Amniotic Fluid, Therapeutic from Products of Conception, Via Natural or Artificial Opening (ICD-10-PCS; 2018-05-15)
PROC: 10H07YZ Insertion of Other Device into Products of Conception, Via Natural or Artificial Opening (ICD-10-PCS; 2018-05-15)
PROC: 10D00Z1 Extraction of Products of Conception, Low, Open Approach (ICD-10-PCS; principal; 2018-05-15 08:30)
DX: O26.893 Other specified pregnancy related conditions, third trimester (principal); D62 Acute posthemorrhagic anemia; O45.93 Premature separation of placenta, unspecified, third trimester; O76 Abnormality in fetal heart rate and rhythm complicating labor and delivery; O64.0XX0 Obstructed labor due to incomplete rotation of fetal head, not applicable or unspecified; O99.02 Anemia complicating childbirth; O73.0 Retained placenta without hemorrhage; O99.63 Diseases of the digestive system complicating the puerperium; K59.00 Constipation, unspecified; O75.81 Maternal exhaustion complicating labor and delivery; Z37.0 Single live birth; Z67.21 Type B blood, Rh negative; Z3A.40 40 weeks gestation of pregnancy; Z87.891 Personal history of nicotine dependence
CPT/HCPCS: 36415; 59025; 82803; 83033; 84112; 85025; 86900; 86901; 88307

== ENCOUNTER 2018-05-21 21:35 | Outpatient (CLI) | payer OTHER ==
[2018-05-21 21:52] VITALS: BP 134/78
[2018-05-21 22:09] LABS: BASOPHILS % (AUTO) 0.3 %; EOSINOPHILS % (AUTO) 1.5 %; HGB - HEMOGLOBIN 10.1 g/dL (12.0-16.0); LYMPHOCYTES % (AUTO) 15.5 %; MEAN CORPUSCULAR HEMOGLOBIN 28.2 pg (27.0-31.0); MEAN CORPUSCULAR HGB CONC 33.4 g/dL (32.0-36.0); MEAN CORPUSCULAR VOLUME 84.6 fL (81.0-99.0); MEAN PLATELET VOLUME 7.6 fL (7.9-10.8); MONOCYTES % (AUTO) 6.2 %; NEUTROPHILS % (AUTO) 76.5 %; PLT - PLATELET COUNT 421 10^3/uL (130-450); RED BLOOD COUNT 3.57 10^6/uL (4.20-5.40); RED CELL DISTRIBUTION WIDTH 14.4 % (12.0-15.0); WHITE BLOOD COUNT 12.9 x10^3/uL (4.8-10.8)
[2018-05-21 22:18] LABS: ABNORMAL LYMPHS % (MANUAL) 0 %
[2018-05-21 22:29] LABS: BAND NEUTROPHILS % (MANUAL) 2 %; EOSINOPHILS # (MANUAL) 0.1 10^3/uL (0-0.7); LYMPHOCYTES # (MANUAL) 1.9 10^3/uL (1.5-3.5); LYMPHOCYTES % (MANUAL) 14 %; MONOCYTES # (MANUAL) 0.6 10^3/uL (0.0-1.0); NEUTROPHILS # (MANUAL) 10.2 10^3/uL (1.5-6.6); NEUTROPHILS % (MANUAL) 77 %
[2018-05-21 22:30] LABS: PLATELET ESTIMATE, MANUAL NORMAL (130-450,000) (NORMAL); PLATELET MORPHOLOGY NORMAL APPEARANCE (NORMAL)
--- NOTE | 2018-06-21 16:22 | CONSULTATION NOTE ---
DATE OF SERVICE: 05/21/2018 Physician: Christophe Romano MD LABOR AND DELIVER ENCOUNTER NOTE HISTORY OF PRESENT ILLNESS: Patient is a 32-year-old primiparous patient who was delivered by at 40 weeks 3 days secondary to repetitive late decelerations. Her course in the hospital was unremarkable, and her lochia was mild, nonfoul. She reports passage of clots earlier today, and was instructed to come to the hospital for evaluation. In the hospital, her vital signs were stable. The uterus was firm and nontender with no disruption of the wound. There were no repetitive bleeding episodes. Hemoglobin was checked at 10.1 grams. Platelets were adequate. ASSESSMENT: Isolated postoperative uterine bleeding post section is not unusual. With nursing, uterus contracts and any interior clots are expelled. Patient was given reassurance. Patient discharged home with instructions to report further bleeding. She is reminded to come to her 2-week postoperative check. TD: 06/19/2018 10:29 MTDD
== END 2018-05-21 22:42 | disposition home or self-care (01) ==
LOC: WFO 21:35 → FBP 21:36 → WFO 22:42
PROVIDERS: ATTEND Obstetrics & Gynecology
DX: O72.2 Delayed and secondary postpartum hemorrhage (principal)
CPT/HCPCS: 36415; 85025; 99213

== ENCOUNTER 2018-05-30 19:26 | Outpatient (CLI) | payer OTHER | END 2018-05-30 19:27 | disposition home or self-care (01) | LOC: WFO 19:26 | PROVIDERS: ATTEND Obstetrics & Gynecology | DX: Z53.9 Procedure and treatment not carried out, unspecified reason (principal) ==

== ENCOUNTER 2018-07-10 16:24 | Outpatient (CLI) | payer OTHER | END 2018-07-10 16:25 | disposition home or self-care (01) | LOC: LAB.R 16:24 | PROVIDERS: ATTEND Registered Nurse | DX: N94.819 Vulvodynia, unspecified (principal) | CPT/HCPCS: 87480; 87510; 87660 ==